=== PATIENT | male | born 1945 | race African-American/Black ===

== ENCOUNTER 2016-07-14 10:13 | Emergency (ER) | payer OTHER ==
[~2016-07-14] VITALS: Ht 170.2 cm; Wt 128.8 kg
--- NOTE | 2016-07-14 11:58 | RADIOLOGY REPORT ---
EXAMINATION: XR SHOULDER, LEFT X-ray RIGHT KNEE CLINICAL INFORMATION: Status post fall. COMPARISON: None TECHNIQUE: 3 views of the left shoulder. 5 views of the right knee. FINDINGS: LEFT SHOULDER Normal bony pneumatization. No evidence of acute fracture or dislocation. Moderate degenerative changes with osteophyte formations noted in the acromioclavicular joint. Degenerative changes also noted in the superolateral aspect of the humerus and glenohumeral joint. Visualized left ribs are intact. RIGHT KNEE Normal bony mineralization. No evidence of acute fracture or dislocation. Moderate degenerative changes noted in the tibiofemoral and patellofemoral compartments. It is worse in the medial compartment with significant decrease in the joint space. Small to moderate joint effusion. IMPRESSION: 1. No acute osseous abnormality. 2. Moderate to severe degenerative changes. 3. Small to moderate right knee effusion. No evidence of lipohemarthrosis.
--- NOTE | 2016-07-14 11:58 | RADIOLOGY REPORT ---
EXAMINATION: XR HIP, RIGHT CLINICAL INFORMATION: Fall. Pain. COMPARISON: No relevant prior imaging is available. TECHNIQUE: Two views of the right hip. FINDINGS: There is mild chronic degenerative narrowing of the joint space and a small collar osteophyte surrounding the femoral head. The femoral neck is intact with no evidence of acute fracture. No dislocation. Heterotopic bone versus osteophyte spurring is visualized at the greater trochanter and at the ischial tuberosity. Phleboliths are partially visualized within the pelvis and there are numerous metallic brachytherapy seeds within the prostate gland. Soft tissues are unremarkable. IMPRESSION: No evidence of acute fracture or dislocation. Chronic degenerative changes as described above.
[2016-07-14 12:08] LABS: ABSOLUTE BASOPHIL COUNT 0.1 /CUMM (0.0-0.2); ABSOLUTE EOSINOPHIL COUNT 0.2 /CUMM (0.0-0.7); ABSOLUTE GRANULOCYTE CT 4.6 /CUMM (1.4-6.5); ABSOLUTE LYMPH COUNT 1.6 /CUMM (1.2-3.4); ABSOLUTE MONOCYTE COUNT 0.5 /CUMM (0.10-0.60); BASOPHIL % 0.8 % (0.0-2.0); GRANULOCYTE % 65.5 % (42.2-75.2); MEAN CORPUSCULAR HGB 25.2 PG (27.0-31.0); MEAN CORPUSCULAR HGB CONC 32.2 G/DL (33.0-37.0); MEAN CORPUSCULAR VOLUME 78.2 FL (80.0-94.0); PLATELET COUNT 244 /CUMM (130-400); RBC DISTRIBUTION WIDTH 17.4 % (11.5-14.5); RED BLOOD CELL CT 4.35 /CUMM (4.70-6.10)
--- NOTE | 2016-07-14 13:42 | CT SCAN REPORT ---
EXAMINATION: CT HEAD WITHOUT CONTRAST CLINICAL INFORMATION: 70-year-old man with fall and dementia. COMPARISON: None. TECHNIQUE: Contiguous axial imaging was performed from the skull base to vertex without intravenous administration of contrast. DLP: 610 mGy-cm. FINDINGS: No intracranial mass, hemorrhage, midline shift, or extra-axial collection is appreciated. Moderate chronic microvascular ischemic changes are suggested throughout the supratentorial white matter. The ventricles and sulcal spaces are diffusely prominent secondary to chronic volume loss. Small mucus retention cysts are visible in both maxillary sinuses. A 1 cm osteoma is visible in the right anterior ethmoid air cell. IMPRESSION: No acute intracranial pathology.
--- NOTE | 2016-07-14 13:56 | ED MVC/FALL/TRAUMA COMPLAINT ---
History of Present Illness General Chief Complaint: Fall Stated Complaint: BIBA FOR FALL Source: patient Exam Limitations: dementia Vital Signs & Intake/Output Vital Signs & Intake/Output Vital Signs Date Time Temp Pulse Resp B/P Pulse O2 O2 Flow FiO2 Ox Delivery Rate 07/14 1430 98.6 86 18 122/84 98 Room Air 07/14 1147 75 18 126/75 98 Room Air 07/14 1017 98.6 60 18 114/60 98 Room Air Allergies Coded Allergies: coconut (07/14/16) Reconcile Medications Sulfamethoxazole/Trimethoprim (Bactrim Ds Tablet) 800 MG-160 MG TABLET 1 TAB PO BID uti Triage Note: 70 YO MALE FAY FROM [facility]. PER EMS PT SUSTAINED A FALL YESTERDAY BUT HAD NO COMPLAINTS SO HE WASNT SENT IT. PER [facility], PT C/O LOW BACK PAIN. PT HX OF DEMENTIA. PT ARRIVES ALERT. DENIES PAIN TO BACK AT THIS TIME. C/O PAIN TO BIALTERAL KNEES. PT STATES HE WAS GETTING UP YESTERDAY WHEN HIS HEAD "FELT FUNNY" AND HE FELL ON HIS BOTTOM. PT WAS DUE TO BE D/C HOME TODAY FROM [place] Triage Nurses Notes Reviewed? yes Onset: Abrupt Duration: day(s): Timing: recent history Severity: moderate, severe Method of Injury: fall Loss of Consciousness: no loss of consciousness HPI: 70-year-old male comes into emergency room for further evaluation after found on the ground in the [facility]. Patient does not recall the fall. Patient has a history of baseline dementia. Patient complains of some pain to his right knee right hip and left shoulder. Denies any headache or back pain. Denies any chest pain. Denies any abdominal pain. (BERNADINE WRAY) Past History Travel History Traveled to [place] past 21 day No Medical History Any Pertinent Medical History? see below for history Neurological: dementia EENT: NONE Cardiovascular: aflutter Respiratory: asthma, obstructive sleep apnea Gastrointestinal: NONE Hepatic: NONE Renal: benign prost hyperplasia Musculoskeletal: NONE Psychiatric: psychosis Endocrine: diabetes Blood Disorders: NONE Cancer(s): prostate cancer THIRD MILLER/Reproductive: NONE Surgical History Surgical History: non-contributory Psychosocial History What is your primary language Greek Tobacco Use: Never used ETOH Use: denies use Illicit Drug Use: denies illicit drug use Family History Hx Contributory? No (BERNADINE WRAY) Review of Systems Review of Systems Constitutional: Reports: no symptoms. Eyes: Reports: no symptoms. Ears, Nose, Throat, Mouth: Reports: no symptoms. Respiratory: Reports: no symptoms. Cardiovascular: Reports: no symptoms. Gastrointestinal/Abdominal: Reports: no symptoms. Genitourinary: Reports: no symptoms. Musculoskeletal: Reports: see HPI. Skin: Reports: no symptoms. Neurological/Psychological: Reports: no symptoms. All Other Systems: Reviewed and Negative (BERNADINE WRAY) Physical Exam Physical Exam General Appearance: well developed/nourished, no apparent distress, alert Head: atraumatic, normal appearance Eyes: Bilateral: normal appearance, EOMI. Ears, Nose, Throat, Mouth: hearing grossly normal, moist mucous membrane Neck: normal inspection, full range of motion Respiratory: normal breath sounds, no respiratory distress Cardiovascular: irregularly irregular Gastrointestinal: normal bowel sounds, soft, non-tender Back: normal inspection Extremities: normal range of motion Neurologic/Psych: awake, alert, oriented x 3, normal gait, normal mood/affect Skin: intact, normal color Core Measures ACS in differential dx? No Severe Sepsis Present: No Septic Shock Present: No (BERNADINE WRAY) Progress Differential Diagnosis: abd injury, C/T/L spine injury, ext injury, ICH, pelvis injury, pnemothorax, spinal cord injury Plan of Care: Orders Procedure Date/time Status Add-on Test (ER Only) 07/14 1354 Active CULTURE,URINE 07/14 1138 Active URINALYSIS 07/14 1047 Complete TROPONIN LEVEL 07/14 1046 Complete COMPREHENSIVE METABOLIC PANEL 07/14 1046 Complete CBC WITHOUT DIFFERENTIAL 07/14 1046 Complete EKG 07/14 1046 Active Laboratory Tests 07/14/16 1150: Anion Gap 5, Estimated GFR > 60, BUN/Creatinine Ratio 17.5, Glucose 95, Calcium 9.6, Total Bilirubin 1.2, AST 14 L, ALT 32, Alkaline Phosphatase 131 H, Troponin I 0.04, Total Protein 6.2 L, Albumin 3.3 L, Globulin 2.9, Albumin/ Globulin Ratio 1.1, CBC w Diff NO MAN DIFF REQ, RBC 4.35 L, MCV 78.2 L, MCH 25.2 L, RDW 17.4 H, MPV 7.0 L, Gran % 65.5, Lymphocytes % 22.9, Monocytes % 7.8, Eosinophils % 3.0, Basophils % 0.8, Absolute Granulocytes 4.6, Absolute Lymphocytes 1.6, Absolute Monocytes 0.5, Absolute Eosinophils 0.2, Absolute Basophils 0.1, PUBS MCHC 32.2 L 07/14/161137: Urinalysis LIGHT H, Urine Color YEL, Urine Clarity HAZY H, Urine pH 7.0, Ur Specific [place] 1.015, Urine Protein NEG, Urine Ketones NEG, Urine Nitrite NEG, Urine Bilirubin NEG, Urine Urobilinogen 2.0 H, Ur Leukocyte Esterase MOD H, Ur Microscopic SEDIMENT EXAMINED, Urine RBC 3-5, Urine WBC 25-50 H, Urine Mucus RARE, Urine Hemoglobin NEG, Urine Glucose NEG Microbiology 07/14 1137 URINE ROUT: Urine Culture - RECD Diagnostic Imaging: Viewed by Me: Radiology Read, CT Scan. Discussed w/RAD: Radiology Read, CT Scan. Radiology Impression: SERVICE DATE: 07/14/16 EXAM TYPE: RAD - XRY-HIP 2-3 VIEWS, RIGHT EXAMINATION: XR HIP, RIGHT CLINICAL INFORMATION: Fall. Pain. COMPARISON: No relevant prior imaging is available. TECHNIQUE: Two views of the right hip. FINDINGS: There is mild chronic degenerative narrowing of the joint space and a small collar osteophyte surrounding the femoral head. The femoral neck is intact with no evidence of acute fracture. No dislocation. Heterotopic bone versus osteophyte spurring is visualized at the greater trochanter and at the ischial tuberosity. Phleboliths are partially visualized within the pelvis and there are numerous metallic brachytherapy seeds within the prostate gland. Soft tissues are unremarkable. IMPRESSION: No evidence of acute fracture or dislocation. Chronic degenerative changes as described above. DICTATED BY: ABRAHAM HEDRICK,LYNN Villeda DATE/TIME DICTATED:07/14/161149 TELEPHONE MAINTENANCE MECHANIC: MARICARMEN DATE/TIME TRANSCRIBED:07/14/161149, SERVICE DATE: 07/14/16 EXAM TYPE: CAT - CT HEAD WO IV CONTRAST EXAMINATION: CT HEAD WITHOUT CONTRAST CLINICAL INFORMATION: 70-year-old man with fall and dementia. COMPARISON: None. TECHNIQUE: Contiguous axial imaging was performed from the skull base to vertex without intravenous administration of contrast. DLP: 610 mGy-cm. FINDINGS: No intracranial mass, hemorrhage, midline shift, or extra-axial collection is appreciated. Moderate chronic microvascular ischemic changes are suggested throughout the supratentorial white matter. The ventricles and sulcal spaces are diffusely prominent secondary to chronic volume loss. Small mucus retention cysts are visible in both maxillary sinuses. A 1 cm osteoma is visible in the right anterior ethmoid air cell. IMPRESSION: No acute intracranial pathology. DICTATED BY: WILLIAN TIRADO MD DATE/TIME DICTATED:07/14/161336 TELEPHONE MAINTENANCE MECHANIC: MARICARMEN DATE/TIME TRANSCRIBED:07/14/161336, EXAM TYPE: RAD - XRY-KNEE COMPLETE RIGHT; XRY-SHOULDER COMPLETE-LEFT EXAMINATION: XR SHOULDER, LEFT X-ray RIGHT KNEE CLINICAL INFORMATION: Status post fall. COMPARISON: None TECHNIQUE: 3 views of the left shoulder. 5 views of the right knee. FINDINGS: LEFT SHOULDER Normal bony pneumatization. No evidence of acute fracture or dislocation. Moderate degenerative changes with osteophyte formations noted in the acromioclavicular joint. Degenerative changes also noted in the superolateral aspect of the humerus and glenohumeral joint. Visualized left ribs are intact. RIGHT KNEE Normal bony mineralization. No evidence of acute fracture or dislocation. Moderate degenerative changes noted in the tibiofemoral and patellofemoral compartments. It is worse in the medial compartment with significant decrease in the joint space. Small to moderate joint effusion. IMPRESSION: 1. No acute osseous abnormality. 2. Moderate to severe degenerative changes. 3. Small to moderate right knee effusion. No evidence of lipohemarthrosis. DICTATED BY: JOCELYN ONEAL MD DATE/TIME DICTATED:07/14/161150 TELEPHONE MAINTENANCE MECHANIC:MARICARMEN DATE/TIME TRANSCRIBED:07/14/161150, SERVICE DATE: 07/14/16 EXAM TYPE: CAT - CT HEAD WO IV CONTRAST EXAMINATION: CT HEAD WITHOUT CONTRAST CLINICAL INFORMATION: 70-year-old man with fall and dementia. COMPARISON: None. TECHNIQUE: Contiguous axial imaging was performed from the skull base to vertex without intravenous administration of contrast. DLP: 610 mGy-cm. FINDINGS: No intracranial mass, hemorrhage, midline shift, or extra- axial collection is appreciated. Moderate chronic microvascular ischemic changes are suggested throughout the supratentorial white matter. The ventricles and sulcal spaces are diffusely prominent secondary to chronic volume loss. Small mucus retention cysts are visible in both maxillary sinuses. A 1 cm osteoma is visible in the right anterior ethmoid air cell. IMPRESSION: No acute intracranial pathology. Initial ED EKG: rate (67), AFIB Comments: 07/14/2016 2:32:08 PM Patient clinically looks well. Patient has been in no apparent distress here in the emergency room. Nontoxic-appearing. Patient has a mild UTI. Patient is being discharged from [facility] today but they wanted the patient to be evaluated before discharge. Patient is being sent back over. Return if any other concerns worsening symptoms. Patient understands and agrees with plan of care.pT SEEN BY DR HEMPHILL. (ANGELO NICKKESHENA) Departure Departure Disposition: HOME OR SELF CARE Condition: Stable Clinical Impression Primary Impression: UTI (urinary tract infection) Secondary Impressions: Fall Referrals: FELY ALLEN MD (PCP/Family) Additional Instructions: take Bactrim as prescribed. Follow-up with your primary care doctor. Return if any concerns worsening symptoms. Please go over all results of today's visit with your primary care doctor. Contact your primary care doctor to let them know you were here in the emergency room. There may be nonspecific findings which may not be related to your visit today here in the emergency room but may require further evaluation and chronic monitoring by your primary care doctor. If you had a laceration today the chance of foreign body always remains. You should follow-up with your primary care doctor for recheck in 3-5 days for a wound check. If you had an x-ray done there is a chance that a fracture could have been missed on initial read and you should follow-up with your primary care doctor for repeat x-rays if symptoms persist. If your blood pressure was elevated here in the emergency room please have rechecked by her primary care doctor within the next 48 hours by your primary care doctor. If you were prescribed a narcotic here in the emergency room or any type of controlled substances you're not allowed to drive while taking this medication or operate any type of heavy machinery. Narcotics can make you feel lightheaded dizziness nausea and can cause constipation. You may need to package pick up a stool softener. Thank you for choosing [facility] emergency room. Please return to the emergency room immediately if you have any other concerns worsening of symptoms. Departure Forms: Customer Survey General Discharge Information Prescriptions: Current Visit Scripts Sulfamethoxazole/Trimethoprim (Bactrim Ds Tablet) 1 TAB PO BID #20 TAB (BERNADINE WRAY) PA/CALCULUS PROFESSOR Co-Sign Statement Statement: ED Attending supervision documentation- [X] I saw and evaluated the patient. I have also reviewed all the pertinent lab results and diagnostic results. I agree with the findings and the plan of care as documented in the PA's/CALCULUS PROFESSOR's documentation. [] I have reviewed the ED Record and agree with the PA's/CALCULUS PROFESSOR's documentation. [] Additions or exceptions (if any) to the PAs/CALCULUS PROFESSOR's note and plan are summarized below: [] (LINDA HEMPHILL DO
[2016-07-14] MEDS ORDERED: BACTRIM DS TAB1 EACH PO (13:57)
[2016-07-14 14:30] VITALS: BP 122/84
== END 2016-07-14 14:31 ==
LOC: ERH 10:13
PROVIDERS: Physician Assistant Medical
DX: M25.561 Pain in right knee (principal); M25.551 Pain in right hip; M25.512 Pain in left shoulder; N39.0 Urinary tract infection, site not specified; F03.90 Unspecified dementia, unspecified severity, without behavioral disturbance, psychotic disturbance, mood disturbance, and anxiety; I48.92 Unspecified atrial flutter; E11.9 Type 2 diabetes mellitus without complications
CPT/HCPCS: 87184; 73030-LT; 73502-RT; 73562-RT; 81001; 87086; 87147; 93005; 93010